=== PATIENT | female | born 1955 | race Two or more races ===

== ENCOUNTER 2020-02-01 18:48 | Emergency (ER) | payer MEDICAID, OTHER | END 2020-02-01 19:57 | disposition left against medical advice (07) | LOC: EDBD 18:48 → ER 18:48 | DX: R10.9 Unspecified abdominal pain (principal); Z53.21 Procedure and treatment not carried out due to patient leaving prior to being seen by health care provider ==

== ENCOUNTER 2020-09-21 10:20 | Emergency (ER) | payer MEDICARE, MEDICAID ==
[~2020-09-21] VITALS: Ht 154.9 cm; Wt 68.0 kg
[2020-09-21 12:27] VITALS: BP 130/80
[2020-09-21] MEDS ORDERED: PROMETHAZINE HCL 25 MG/ML 1ML IM ONE (13:00)
[2020-09-21] MEDS ORDERED: MEPERIDINE HCL (50 MG/ML) 1 ML VIAL IM ONE (13:00)
== END 2020-09-21 14:08 | disposition home or self-care (01) ==
LOC: EDBD 10:20 → ER 10:21
DX: G89.29 Other chronic pain (principal); M54.2 Cervicalgia; M54.5 Low back pain; E11.9 Type 2 diabetes mellitus without complications
CPT/HCPCS: 96372; 99284; J2175; J2550